=== PATIENT | female | born 1940 | race Caucasian/White ===

== ENCOUNTER 2024-09-15 08:16 | Emergency (ER) | payer MEDICARE, OTHER ==
[~2024-09-15] VITALS: Ht 165.1 cm; Wt 72.7 kg
--- NOTE | 2024-09-15 10:30 | HMCIMG ---
EXAM: CT Chest Without IV contrast. CLINICAL HISTORY: right sided rib injury TECHNIQUE: Axial computed tomography images of the chest without intravenous contrast. COMPARISON: None provided. FINDINGS: Ribs: There is an undisplaced fracture along the 3rd and 4th lateral aspect of the right rib. There is a minimally displaced fracture along the 5th and 6th right ribs. No other acute rib fractures are identified. Scapulae: There is a minimally displaced fracture along the scapular blade on the right side. The left scapula appears normal. Clavicles: Both clavicles appear intact without evidence of fracture or dislocation. Vertebrae: Mild degenerative changes are noted, especially in the thoracic spine. No acute vertebral fractures or subluxations are seen. Soft Tissues:No abnormal soft tissue swelling or subcutaneous emphysema is seen. Lungs: Chronic lung changes, in the form of atelectatic bands, are seen involving the right middle lobe and bilateral basal lung segments. No focal consolidation, mass, or acute infiltrate is seen. No evidence of pneumothorax. Pleura: Trace right pleural effusion. Mediastinum and [place]: Unremarkable. Visualized Upper Abdomen:The visualized upper abdomen appears normal. IMPRESSION: Fracture right 3rd, 4th, 5th and 6th right ribs. Fracture right scapula. /[place]
[2024-09-15 11:14] VITALS: BP 161/77; PULSE 76; RESP 18; TEMP 97.9; O2SAT 97
[2024-09-15] MEDS: LIDOCAINE 5% TOPICAL PATCH TP ONE (11:31)
--- NOTE | 2024-09-15 11:31 | ERN ---
ED Note History of Present Illness Stated Complaint: SHOULDER Chief Complaint: Shoulder Injury/Pain Time Seen by MD: 08:49 Dictation: 84-year-old female who fell five days ago onto her right side along the posterior upper back and shoulder area causing pain worse with movement and touch worse over the initial 2-3 days but has been slowly improving no other injuries no head injury. Allergies: Coded Allergies: No Known Drug Allergies (Unverified Allergy, Unknown, 09/15/24) Past Medical History Past Medical History: Hypothyroid, Other Additional Past Medical Hx: knee pain Surgical History: Hysterectomy, Other Surgical History Other: bladder ;lift Review of System Dictation Constitutional: Negative for fever,chills, and weight loss Eyes: Negative for injury, pain,redness, and discharge ENT: Negative for injury,pain or swelling Cardiovascular: Negative for chest pain, palpitations, and edema Respiratory: Negative for shortness of breath, cough, and wheezing, Abdomen/GI: Negative for abdominal pain, nausea, vomiting, diarrhea, and constipation Back: Negative for injury and pain : Negative for injury, bleeding and discharge MS/Extremity: Per HPI Skin: Negative for rash, and discoloration Neuro: Negative for headache, weakness, numbness, tingling, and seizure Psych: Negative for suicide ideation, homicidal ideation, and hallucinations Initial Vital Sign VS Vital Signs Date Time Temp Pulse Resp B/P (MAP) Pulse Ox O2 Delivery O2 Flow Rate FiO2 09/15/24 08:19 97.9 77 18 183/79 97 Room Air 0 09/15/24 08:21 21 Physical Exam Dictation General: awake, alert, NAD Head/Face: Normocephalic, atraumatic Eyes: PERRL, EOMI, vision at baseline ENT: oral cavity clear, TMs clear, no signs of infection Neck: Trachea midline, supple, no nuchal rigidity Cardiovascular: RRR, normal S1/S2, No MRGs, no JVD Respiratory: CTAB, no respiratory distress, No rales or wheezes , chest wall right posterior aspect shows contusion and tenderness to palpation Abdomen: Soft, non-tender, non-distended, normal bowel sounds, no guarding or rebound. Skin: Warm, dry, normal turgor, no rash MS/Extremity: Pulses equal, no cyanosis, neurovascular intact, FROM Neuro: COAx4, GCS 15, strength 5/5, CN 2-12 intact, normal cerebellar exam, normal gait, Psych: Normal behavior, mood, and affect normal Results (Laboratory/Radiology) CT Scan Comment: CT scan shows right posterior rib 3. Four five and six fracture and scapular fr acture which is nondisplaced no signs bleeding or pneumothorax ED Course ED Course Orders Procedure Category Date Status Time Ct Chest W/O Contrast CT 09/15/24 Resulted 09:00 Ketorolac PHA 09/15/24 Logged Tromethamine 15mg/Ml 11:30 Lidocaine (Lidoderm PHA 09/15/24 Logged Patch 5%) 11:30 Current Medications Medications (Trade) Dose Ordered Sig/Luigi Route PRN Reason Start Time Stop Time Status Last Admin Dose Admin Ketorolac Tromethamine (toRADol) 15 mg ONCE ONCE IM 09/15/24 11:30 09/15/24 11:31 UNV Lidocaine (Lidoderm Patch 5%) 1 patch ONCE ONCE TP 09/15/24 11:30 09/15/24 11:31 UNV Vital Signs Date Time Temp Pulse Resp B/P (MAP) Pulse Ox O2 Delivery O2 Flow Rate FiO2 09/15/24 11:14 97.9 76 18 161/77 97 Room Air* 0 21 09/15/24 08:21 97.9 77 18 183/79 97 Room Air* 0 21 09/15/24 08:19 97.9 77 18 183/79 97 Room Air 0 Medical Decision Making MDM MDM: Differential diagnosis: Rationale: Tests considered and ordered secondary to shared decision making include: Previous outside records reviewed: Old ER visits. Risk of complication and/or morbidity or mortality of patient management: None Medications-Per medication reconciliation Need for hospitalization: Patient does not meet criteria for hospitalization. Need for emergency major/minor surgery: No There are no social concerns with this patient. Prescription drug management Prescriptions will include symptomatic care Patient's prior external medical records from other ER visits were reviewed by me as indicated. Prior testing and results from previous visits were reviewed. Prior tests were taken into account with medical decision making and resource utilization, independent historian/historians were used to obtain complete medical history. I independently interpreted the test that were performed, results were reviewed by me and considered findings on radiology if ordered. Medical management and examination interpretation discussions were had by me with other qualified healthcare professionals as indicated for the patient's care. Injury was from five days out symptoms are improving no complications patient was given I spirometry and pain management feels good and wants to go home DX & DISP Disposition: Discharge Departure Impression: Primary Impression: Right rib fracture Additional Impression: Right scapula fracture Condition: Stable Referrals: SELF,REFERRAL (PCP) SOBEIDA SANCHEZ MD Sep 15, 2024 11:31
== END 2024-09-15 11:51 | disposition home or self-care (01) ==
LOC: EDH 08:16
DX: S22.31XA Fracture of one rib, right side, initial encounter for closed fracture (principal); S42.101A Fracture of unspecified part of scapula, right shoulder, initial encounter for closed fracture; E03.9 Hypothyroidism, unspecified; Z90.710 Acquired absence of both cervix and uterus; W18.39XA Other fall on same level, initial encounter; Y93.89 Activity, other specified; Y92.89 Other specified places as the place of occurrence of the external cause; Y99.8 Other external cause status
CPT/HCPCS: 99285; 71250; 96372; J1885